=== PATIENT | male | born 1945 | race Caucasian/White ===

== ENCOUNTER → 2022-01-24 09:34 | Outpatient (CLI) | payer MEDICARE, OTHER, SELFPAY ==
[2022-01-24 21:43] LABS: Add Manual Diff / Slide Review NO; Basophils Absolute Auto 0 /uL (0-100); Basophils Percent Auto 0.9 % (0-2); Eosinophils Absolute Auto 0 /uL (0-450); Eosinophils Percent Auto 0.7 % (2-4); Hematocrit 44.5 % (41-53); Hemoglobin 15.1 g/dL (13.5-17.5); Lymphocytes Absolute Auto 1100 /uL (1100-4500); Lymphocytes Percent Auto 26.1 % (25-40); Mean Corpuscular HGB Conc 33.9 % (30-36); Mean Corpuscular Hemoglobin 30.7 PG (26-34); Mean Corpuscular Volume 90.6 fL (80-100); Monocytes Absolute Auto 300 /uL (0-900); Monocytes Percent Auto 6.2 % (3-14); Neutrophils Absolute Auto 2800 /uL (1500-7000); Neutrophils Percent Auto 66.1 % (50-75); Platelet Count 182 X10^3/uL (150-400); Red Blood Cell Count 4.91 X10^6/uL (4.5-5.9); Red Cell Distribution Width 12.8 % (11.6-14.8); White Blood Cell Count 4.2 X10^3/uL (4.5-11.0)
[2022-01-25 05:46] LABS: Alanine Aminotransferase 29 IU/L (<50); Albumin 4.1 g/dL (3.5-5.0); Albumin Globulin Ratio 1.6 (1.0-2.8); Alkaline Phosphatase 74 U/L (38-126); Aspartate Aminotransferase 32 IU/L (17-59); Bilirubin Total 0.9 mg/dL (0.2-1.3); Blood Urea Nitrogen 16 mg/dL (9-20); Calcium 8.9 mg/dL (8.4-10.2); Carbon Dioxide 27 mmol/L (22-32); Chloride 104 mmol/L (98-107); Cholesterol 205 mg/dL (140-199); Estimated Glomerular Filt Rate > 60 mL/min (>60); Globulin 2.5 g/dL (1.7-4.1); Glucose 103 mg/dL (80-110); HDL Cholesterol 61 mg/dL (40-60); HEMOLYSIS < 15 (0-50); LDL Cholesterol Calculated 136 mg/dL (<100); Potassium 4.5 mmol/L (3.4-5.1); Sodium 138 mmol/L (137-145); Total Protein 6.6 g/dL (6.3-8.2); Triglycerides 42 mg/dL (35-150)
[2022-01-25 06:16] LABS: Prostate Specific Antigen Scrn 0.688 ng/mL (0.1-4.0)
== END ==
PROVIDERS: PCP Physician Assistant Medical; Visit Provider Family Medicine
DX: Z13.29 Encounter for screening for other suspected endocrine disorder (principal); Z12.5 Encounter for screening for malignant neoplasm of prostate; Z13.220 Encounter for screening for lipoid disorders; Z13.0 Encounter for screening for diseases of the blood and blood-forming organs and certain disorders involving the immune mechanism; Z00.00 Encounter for general adult medical examination without abnormal findings
CPT/HCPCS: 80053; 80061; 84443; 85025; G0103

== ENCOUNTER 2022-04-17 18:51 | Observation (INO) | payer MEDICARE, OTHER, SELFPAY ==
[2022-04-17 19:03] VITALS: BP 139/84; PULSE 56; RESP 12; TEMP 35.7; O2SAT 99; BMI 26.6
--- NOTE | 2022-04-17 19:26 | DI.RAD.S_ITS ---
PROCEDURE: XR CHEST 1V INDICATIONS: chest pain TECHNIQUE: One view of the chest was acquired. COMPARISON: [facility], , CHEST 2 VIEW, 05/13/2008, 15:43. FINDINGS: Surgical changes and devices: None. Lungs and pleura: Lungs are clear. No pleural effusions or pneumothorax. Mediastinum: Mediastinal contours appear normal. Heart size is normal. Bones and chest wall: No suspicious bony lesions. Overlying soft tissues appear unremarkable. IMPRESSION: No acute cardiopulmonary pathology. Dictated by: David Mann M.D. on 04/17/2022 at 19:59 Approved by: David Mann M.D. on 04/17/2022 at 19:59
--- NOTE | 2022-04-17 19:27 | ED_ITS ---
HPI - Chest Pain General Chief Complaint: Chest Pain Stated Complaint: Chest pains Time Seen by Provider: 04/17/22 19:18 Mode of arrival: Family Vehicle History of Present Illness HPI narrative: Patient here with . Complains of intermittent left-sided chest discomfort and palpitations that last less than 5 minutes. Started 1 month ago with hiking and walking. Never had nausea syncope dyspnea numbness tingling or weakness. Pain is left pectoral area. Does not radiate. However today had 2 episodes that last again less than 5 or 10 minutes that occurred when he was at rest. No discomfort at this time. Risk factor includes father of heart issue in his 50s. Patient has never had any stress test or echocardiogram. Does not smoke. No recent illness. No cough cold congestion fever chills. Related Data Home Medications Medication Instructions Recorded Confirmed No Known Home Medications 04/17/22 04/17/22 Allergies Allergy/AdvReac Type Severity Reaction Status Date / Time No Known Drug Allergies Allergy Verified 04/17/22 19:07 Review of Systems Review of Systems Narrative: GENERAL: Denies chills, fatigue, malaise, fever, sweats. HEENT: Denies sinus pain, ear pain, sore throat RESPIRATORY: Denies dyspnea, cough CARDIOVASCULAR: Positive chest pain, palpitations GASTROINTESTINAL: Denies nausea, vomiting, abdominal pain : Denies dysuria, frequency, hematuria MUSCULOSKELETAL: denies muscle or bony pain SKIN: Denies rash, skin lesions NEUROLOGIC: Denies weakness, numbness ROS Unobtainable: All systems reviewed & are unremarkable except as noted in HPI and below Patient History Social History household members: spouse Smoking Status: Former smoker alcohol intake: current Smoking Status: Never smoker alcohol intake frequency: 0-2 drinks per day Substance Use Type: does not use Exam Narrative Exam Narrative: GENERAL: in no distress, not toxic not dyspneic HEAD: Normocephalic. EYES: Pupils equal round No scleral icterus. ENT: Mucous membranes moist. NECK: Trachea midline. CARDIOVASCULAR: Regular rate and rhythm without murmurs RESPIRATORY: Clear to auscultation. Breath sounds equal bilaterally. No wheezes, rales, or rhonchi. GASTROINTESTINAL: Abdomen soft, non-tender EXTREMITIES: No gross deformities. BACK: No flank tenderness. NEURO: AOx4. SKIN: Warm and dry PSYCH: Not anxious, is cooperative Initial Vital Signs Initial Vital Signs: Vital Signs Temperature 96.2 F L 04/17/22 19:03 Pulse Rate 56 L 04/17/22 19:03 Respiratory Rate 12 04/17/22 19:03 Blood Pressure 139/84 04/17/22 19:03 Pulse Oximetry 99 04/17/22 19:03 Oxygen Delivery Method 04/17/22 19:03 Course Course Course Narrative: No new issues during course of stay Decision to Admit Date: 04/17/22 Decision to Admit time: 19:28 Orders Ordered: ED Orders 04/17/22 19:19 Complete Blood Count AUTO DIFF Stat Comprehensive Metabolic Panel Stat Troponin & CK Cardiac Panel Stat 04/17/22 19:26 XR chest 1V Stat 04/17/22 21:12 COVID19 -Nasal RAPID/Pre-Proc Stat Acetaminophen (Acetaminophen 325 Mg Tablet) 650 mg PO Q6HR PRN PRN Reason: Fever/Mild Pain (1-3) Ondansetron HCl (Ondansetron 4 Mg/2 Ml Inj) 4 mg IV Q4HR PRN PRN Reason: Nausea And Vomiting Discontinued Medications Aspirin (Aspirin 81 Mg Chew Tab) 324 mg PO NOW ONE Stop: 04/17/22 19:25 Last Admin: 04/17/22 19:39 Dose: Not Given Documented By: NANCI Reevaluation(s) Reevaluation #1: Patient and family do agree for admission for stress test and echocardiogram. Consultations Consultation #1: Spoke with primary care dr kennedy, will admit pt Time: 20:35 Vital Signs Vital signs: Vital Signs - 8 hr 04/17/22 19:03 Temperature 96.2 F L Pulse Rate 56 L Respiratory Rate 12 Blood Pressure 139/84 Pulse Oximetry 99 Oxygen Delivery Method Room Air MDM - Chest Pain Differential Diagnosis Differential diagnosis: Likely stable angina, unstable angina pectoris, atypical chest pain, st elevation myocardial infarction and chest pain Lab Data Result diagrams: 04/17/22 19:19 04/17/22 19:19 Labs: Lab Results 04/17/22 04/17/22 Range/Units 19:19 19:19 WBC 6.3 (4.5-11.0) X10^3/uL RBC 4.99 (4.5-5.9) X10^6/uL Hgb 15.3 (13.5-17.5) g/dL Hct 44.8 (41-53) % MCV 89.7 (80-100) fL MCH 30.6 (26-34) PG MCHC 34.2 (30-36) % RDW 13.2 (11.6-14.8) % Plt Count 195 (150-400) X10^3/uL Neut % (Auto) 62.4 (50-75) % Lymph % (Auto) 27.2 (25-40) % [place] % (Auto) 7.7 (3-14) % Eos % (Auto) 1.7 L (2-4) % Baso % (Auto) 1.0 (0-2) % Neut # (Auto) 3900 (8570-2606) /uL Lymph # (Auto) 1700 (5268-4804) /uL [place] # (Auto) 500 (0-900) /uL Eos # (Auto) 100 (0-450) /uL Baso # (Auto) 100 (0-100) /uL Sodium 140 (137-145) mmol/L Potassium 4.1 (3.4-5.1) mmol/L Chloride 105 (98-107) mmol/L Carbon Dioxide 28 (22-32) mmol/L BUN 21 H (9-20) mg/dL Creatinine 0.89 (0.66-1.25) mg/dL Estimated GFR > 60 (>60) mL/min BUN/Creatinine Ratio 23.6 H (6-22) Glucose 91 (80-110) mg/dL Calcium 8.9 (8.4-10.2) mg/dL Total Bilirubin 0.4 (0.2-1.3) mg/dL AST 33 (17-59) IU/L ALT 31 (<50) IU/L Alkaline Phosphatase 89 (38-126) U/L Total Creatine Kinase 113 (55-170) U/L CK-MB (CK-2) 2.07 (<2.37) ng/mL CK-MB (CK-2) Rel Index 1.8 (1.5-5.0) % Troponin I < 0.012 (0.01-0.034) ng/mL Total Protein 7.3 (6.3-8.2) g/dL Albumin 4.2 (3.5-5.0) g/dL Globulin 3.1 (1.7-4.1) g/dL Albumin/Globulin Ratio 1.4 (1.0-2.8) Imaging Data Chest x-ray: Radiologist's Impression: [address] [address] XRay Report Signed Patient: Chilango Castle MR#: [id number] : 1945 Acct:[id number] Age/Sex: 77 / M Date of Service: 04/17/22 Loc: ED Accession Number: [id number] ?? Procedure: XR chest 1V Ordering Provider: Marino Salgado MD PROCEDURE:? XR CHEST 1V ? INDICATIONS:? chest pain ? TECHNIQUE:? One view of the chest was acquired.? ? COMPARISON:? [facility], , CHEST 2 VIEW, 05/13/2008, 15:43. ? FINDINGS:? ? Surgical changes and devices:? None.? ? Lungs and pleura:? Lungs are clear.? No pleural effusions or pneumothorax.? ? Mediastinum:? Mediastinal contours appear normal.? Heart size is normal.? ? Bones and chest wall:? No suspicious bony lesions.? Overlying soft tissues appear unremarkable.? ? IMPRESSION:? No acute cardiopulmonary pathology. ? ? Dictated by: David Mann M.D. on 04/17/2022 at 19:59 ? ? Approved by: David Mann M.D. on 04/17/2022 at 19:59 ? ECG Data Interpretation: Sinus bradycardia, rate 53, no ST elevation or depression MDM Narrative Medical decision making narrative: Appropriate for admission. Currently chest pain-free. Has not had chest test/stress test echocardiogram the past. Has history of family significant heart history. Patient and agree for admit. Reviewed with primary care f or admit. Discharge Plan Departure Patient Disposition: Admitted as Observation Clinical Impression: Chest pain Admit Date/Time: 04/17/22 20:36 Admit Provider: Dustin Kennedy
[2022-04-17 19:42] LABS: Add Manual Diff / Slide Review NO; Basophils Absolute Auto 100 /uL (0-100); Eosinophils Absolute Auto 100 /uL (0-450); Eosinophils Percent Auto 1.7 % (2-4); Hematocrit 44.8 % (41-53); Hemoglobin 15.3 g/dL (13.5-17.5); Lymphocytes Absolute Auto 1700 /uL (1100-4500); Lymphocytes Percent Auto 27.2 % (25-40); Mean Corpuscular HGB Conc 34.2 % (30-36); Mean Corpuscular Hemoglobin 30.6 PG (26-34); Mean Corpuscular Volume 89.7 fL (80-100); Monocytes Absolute Auto 500 /uL (0-900); Monocytes Percent Auto 7.7 % (3-14); Neutrophils Absolute Auto 3900 /uL (1500-7000); Neutrophils Percent Auto 62.4 % (50-75); Platelet Count 195 X10^3/uL (150-400); Red Blood Cell Count 4.99 X10^6/uL (4.5-5.9); Red Cell Distribution Width 13.2 % (11.6-14.8); White Blood Cell Count 6.3 X10^3/uL (4.5-11.0)
[2022-04-17 19:52] LABS: Alanine Aminotransferase 31 IU/L (<50); Albumin 4.2 g/dL (3.5-5.0); Albumin Globulin Ratio 1.4 (1.0-2.8); Alkaline Phosphatase 89 U/L (38-126); Aspartate Aminotransferase 33 IU/L (17-59); BUN Creatinine Ratio 23.6 (6-22); Bilirubin Total 0.4 mg/dL (0.2-1.3); Blood Urea Nitrogen 21 mg/dL (9-20); Calcium 8.9 mg/dL (8.4-10.2); Carbon Dioxide 28 mmol/L (22-32); Chloride 105 mmol/L (98-107); Creatine Kinase 113 U/L (55-170); Estimated Glomerular Filt Rate > 60 mL/min (>60); Globulin 3.1 g/dL (1.7-4.1); Glucose 91 mg/dL (80-110); HEMOLYSIS < 15 (0-50); Potassium 4.1 mmol/L (3.4-5.1); Sodium 140 mmol/L (137-145); Total Protein 7.3 g/dL (6.3-8.2)
[2022-04-17 20:03] LABS: Troponin I < 0.012 ng/mL (0.01-0.034)
[2022-04-17 20:07] LABS: CKMB % Relative Index 1.8 % (1.5-5.0); Creatine Kinase MB 2.07 ng/mL (<2.37)
[2022-04-17 21:13] VITALS: BP 141/79; PULSE 56; RESP 12; O2SAT 98
[2022-04-17 21:29] LABS: COVID19 -Nasal RAPID Negative (Negative)
[2022-04-17 21:35] VITALS: BP 148/79; PULSE 55; RESP 18; TEMP 35.8; O2SAT 98
[2022-04-17 22:12] VITALS: BMI 26.6
[2022-04-18 01:01] VITALS: BP 135/68; PULSE 53; RESP 18; TEMP 35.9; O2SAT 98
[2022-04-18 05:28] VITALS: BP 101/49; PULSE 52; RESP 17; TEMP 36.6; O2SAT 97
[2022-04-18 08:41] VITALS: BP 130/76; PULSE 51; RESP 18; TEMP 36.2; O2SAT 95
--- NOTE | 2022-04-18 08:43 | DI.ECHO.S_ITS ---
[facility] +---------+ : : [address] : : : : [id number] : : : : Phone: [phone]+ Echocardiogram Report + + :Name: NEIL LOUISE Study Date: 04/18/2022 Height: 69 in : :[facility] ReadingLocation: Weight: 180 lb : : Gender: Male BSA: 2.0 m2 : :: 1945 Age: 77 yrs BP: 148/79 mmHg: :Reason For Study: CHEST PAIN : :Ordering Physician: JAMES, : :JACKIE Chang Performed By: Amina Rodriguez : :Referring: JACKIE RAMIREZ : + + Interpretation Summary Sinus bradycardia with heart rate of 50-53 bpm. Normal LV size and wall thickness. Normal wall motion and left ventricular systolic function. Ejection fraction is estimated at 55-60%. Stage I diastolic dysfunction. No significant valvular abnormalities. Normal chamber sizes. Mildly dilated ascending aorta measuring 4 cm diameter. No prior study available for comparison. Procedure: A two-dimensional transthoracic echocardiogram with color flow and Doppler was performed. The study quality was technically adequate. There is no prior echocardiogram noted for this patient. The patient was in sinus bradycardia with heart rates between 50-53 bpm during the exam. Left Ventricle: The left ventricle is normal in size and wall thickness. The ejection fraction is estimated to be 55-60%. Right Ventricle: The right ventricle is normal in size and function. Atria: The left atrial size is normal. Right atrial size is normal. There is no Doppler evidence for an interatrial shunt. Mitral Valve: The mitral valve is normal in structure and function. There is mild mitral annular calcification. There is mild mitral regurgitation. Aortic Valve: The aortic valve is trileaflet. The aortic valve is mildly calcified. There is no aortic valve stenosis. No aortic regurgitation is present. Tricuspid Valve: The tricuspid valve is normal in structure and function. There is mild tricuspid regurgitation. The right ventricular systolic pressure is estimated to be at least 23 mmHg based on an estimated right atrial pressure of 3 mm Hg. Pulmonic Valve: The pulmonic valve leaflets are thin and pliable; valve motion is normal. There is mild pulmonic regurgitation. Great Vessels: The aortic root is normal size. The ascending aorta is mildly enlarged. The IVC was not well visualized secondary to technical limitations making central venous pressures difficult to estimate. Pericardium/ Pleura There is no pericardial effusion. There is no pleural effusion. MMode/2D Measurements & Calculations LVIDd: 4.1 cm LVOT diam: 2.6 cm LVIDs: 2.8 cm Ao root diam: 3.9 cm FS: 31.4 % asc Aorta Diam: 4.0 cm EPSS: 0.89 cm Ao Arch Diam (Prox Trans): 3.5 cm IVSd: 1.1 cm LVPWd: 0.91 cm LV perez. diameter/BSA (cm/m^2): 2.1 LV sys. diameter/BSA (cm/m^2): 1.4 LA A2 area: 20.2 cm2 RA long axis: 5.0 cm LA A4 area: 17.3 cm2 RA area: 15.6 cm2 LA length (vol): 5.1 cm RA vol: 41.4 ml LA vol: 58.9 ml RA : 21.0 ml/m2 LA vol index: 29.8 ml/m2 RVD1 (basal): 3.9 cm RVD2 (mid): 2.9 cm TAPSE: 2.2 cm Doppler Measurements & Calculations Ao V2 max: 149.6 cm/sec LVOT Max Jimmie: 75.4 cm/sec Ao V2 mean: 104.5 cm/sec LV V1 max P.3 mmHg Ao max P.0 mmHg LV V1 VTI: 18.1 cm Ao mean P.8 mmHg TERRA(I,D): 2.9 cm2 Ao V2 VTI: 33.8 cm TERRA(V,D): 2.7 cm2 sev ratio: 0.53 TERRA indexed to BSA (cm^2/m^2): 1.5 MV E max jimmie: 65.5 cm/sec TR max jimmie: 225.5 cm/sec MV A max jimmie: 78.3 cm/sec TR max P.3 mmHg MV E/A: 0.84 PA V2 max: 71.5 cm/sec Med Peak E' Jimmie: 6.7 cm/sec PA V2 mean: 50.4 cm/sec E/E' med: 9.7 PA mean P.1 mmHg Lat Peak E' Jimmie: 8.5 cm/sec PA pr(Accel): 32.8 mmHg E/E' lat: 7.7 E/e' average: 8.7 MV dec time: 0.32 sec SV(LVOT): 97.4 ml Electronically signed by: Zulema Ramesh M.D. on Reading Physician:04/18/2022 02:56 PM
--- NOTE | 2022-04-18 08:51 | PM.HP.1 ---
History of Present Illness History of Present Illness Date Patient Seen: 04/18/22 Time Patient Seen: 08:51 Date of Onset of Symptoms: 04/17/22 Chief complaint: Chest pains Narrative: Presented to ED for two episodes of chest tingling at left lateral sternal border yesterday Had these previously while he was on hikes over last year but these occurred at rest Not pain as such lasted about 5 minutes each time then dissipated Initial ED workup unremarkable He is feeling ok over night, got some sleep, no further episodes of chest tightness/buzzing since he's been here will get stress and echo today takes no meds at baseline, vigorous active riky denies any history of trauma no big new life events pretty normal times for him lives in the [facility]. Patient History Family & Social History Family history unavailable: No (youngest brother has stent. dad had RI.) Social History: household members spouse Prior Living Arrangements House Safety & Behavioral: Feels Safe in Current Yes Environment Been Physically Hurt or No Threatened By a Person Tobacco & Substance use: Smoking Status Former smoker alcohol intake current alcohol intake frequency a few times a week Substance Use Type does not use Meds Home Medications and Allergies Home Medications Medication Instructions Recorded Confirmed Type No Known Home Medications 04/17/22 04/17/22 History Allergies Allergy/AdvReac Type Severity Reaction Status Date / Time No Known Drug Allergies Allergy Verified 04/17/22 19:07 Review of Systems Review of Systems Narrative: all systems reviewed and negative except as otherwise documented in HPI Exam Vital Signs (past 8 hours): - 04/18/22 01:01 04/18/22 05:28 04/18/22 08:41 Temperature 96.6 F L 97.9 F 97.1 F L Pulse Rate 53 L 52 L 51 L Respiratory Rate 18 17 18 Blood Pressure 135/68 101/49 L 130/76 Pulse Oximetry 98 97 95 Oxygen Flow Rate 0 0 0 Oxygen Delivery Method Room Air Oxygen Flow Rate 0 Narrative Exam Narrative: pleasant riky laying in bed Const General: cooperative, healthy appearing and comfortable [facility] Head: normocephalic and other (cauliflower ears) Eyes General: appearance normal, both eyes and all related structures Resp Auscultation: clear to auscultation bilaterally Cardio Rate: regular rate Rhythm: regular rhythm Heart Sounds: S1 normal and S2 normal GI Palpation: soft Auscultation: normal bowel sounds Skin General: no rashes or lesions noted Neuro General: patient alert, patient awake, patient oriented x3, moves all extremities, CN's II-XI intact bilaterally and deep tendon reflexes 2+ bilaterally Extrem General: full ROM and no pedal edema Psych Appearance: grossly normal Objective Labs Result Diagrams: 04/17/22 19:19 04/17/22 19:19 Labs: Laboratory Results - last 24 hr 04/17/22 04/17/22 04/17/22 19:19 19:19 21:12 WBC 6.3 RBC 4.99 Hgb 15.3 Hct 44.8 MCV 89.7 MCH 30.6 MCHC 34.2 RDW 13.2 Plt Count 195 Neut % (Auto) 62.4 Lymph % (Auto) 27.2 [place] % (Auto) 7.7 Eos % (Auto) 1.7 L Baso % (Auto) 1.0 Neut # (Auto) 3900 Lymph # (Auto) 1700 [place] # (Auto) 500 Eos # (Auto) 100 Baso # (Auto) 100 Sodium 140 Potassium 4.1 Chloride 105 Carbon Dioxide 28 BUN 21 H Creatinine 0.89 Estimated GFR > 60 BUN/Creatinine Ratio 23.6 H Glucose 91 Calcium 8.9 Total Bilirubin 0.4 AST 33 ALT 31 Alkaline Phosphatase 89 Total Creatine Kinase 113 CK-MB (CK-2) 2.07 CK-MB (CK-2) Rel Index 1.8 Troponin I < 0.012 Total Protein 7.3 Albumin 4.2 Globulin 3.1 Albumin/Globulin Ratio 1.4 SARS-CoV-2 (PCR) Negative Assessment & Plan Assessment & Plan narrative: #Chest pain rule out ACS initial labs/EKG/CXR unremarkable but with strong family history checking stress and echo today continue manager cardiac dispo: admit obsv for cardiac workup PCP: Edwin diet: NPO until tests then heart-healthy MDM: Code: environmental engineering technician Spent With Patient Critical Care time: I spent a total of [] minutes of critical care time on this patient's care today; this time is exclusive of procedural time.
--- NOTE | 2022-04-18 09:19 | PC.NURSE ---
Dayshift Pt left floor at 0915 to go to stress test, left via wheelchair accompanied by staff.
--- NOTE | 2022-04-18 09:39 | PC.NURSE ---
DayShift Pt returned from stress test. Oriented to call light, and given water.
[2022-04-18] MEDS: ENOXAPARIN 40 MG/0.4 ML SYRINGE SUBCUT (09:48)
--- NOTE | 2022-04-18 11:43 | PC.NURSE ---
DaySHift Pt left to go to stress test left floor via wheelchair at 1115.
--- NOTE | 2022-04-18 13:08 | PC.NURSE ---
dayshift Pt returned from stress test at 1255. Pt will have heart healthy diet plate of food ordered. Tele put back on. Pt orientated to call light.
[2022-04-18 13:11] VITALS: BP 135/85; PULSE 61; RESP 18; TEMP 36.4; O2SAT 94
--- NOTE | 2022-04-18 17:30 | PM.DS.1 ---
History of Present Illness History of Present Illness Date Patient Seen: 04/18/22 Time Patient Seen: 17:30 Date of Onset of Symptoms: 04/17/22 Chief complaint: Chest pains Narrative: Presented to ED for two episodes of chest tingling at left lateral sternal border yesterday Had these previously while he was on hikes over last year but these occurred at rest Not pain as such lasted about 5 minutes each time then dissipated Initial ED workup unremarkable He is feeling ok over night, got some sleep, no further episodes of chest tightness/buzzing since he's been here will get stress and echo today takes no meds at baseline, vigorous active riky denies any history of trauma no big new life events pretty normal times for him lives in the [facility]. Discharge Providers Provider Date of admission: 04/17/22 20:36 Discharge Date: 04/18/22 Primary care physician: Dustin Pineda MD Discharge provider: Dustin Pineda MD Summary Hospital Course Discharge Diagnosis: #chest pain rule out ACS Hospital Course: Mr. Castle did well during his admission with no further episodes of chest pain/tingling such as he was having prior to admission echocardiogram looks reassuring, treadmill stress test did well with low risk read per phone report from cardiology able to ambulate and eat a regular diet without problems, feeling fine Status at Discharge Cognitive/behavioral status at discharge: at baseline, oriented Functional status at discharge: independent ambulation Overall status at discharge: patient is back to baseline Exam Vital Signs (past 8 hours): - 04/18/22 13:11 Temperature 97.6 F Pulse Rate 61 Respiratory Rate 18 Blood Pressure 135/85 Pulse Oximetry 94 Oxygen Flow Rate 0 Oxygen Delivery Method Room Air Oxygen Flow Rate 0 Const General: cooperative, healthy appearing, comfortable and well developed [facility] Head: normal to inspection Eyes General: appearance normal, both eyes and all related structures Resp Auscultation: clear to auscultation bilaterally Cardio Rate: regular rate and bradycardic Rhythm: regular rhythm Heart Sounds: S1 normal and S2 normal GI Other: soft nontender nondistended normal bowel sounds Skin General: no rashes or lesions noted Neuro General: patient alert, patient awake, patient oriented x3, gait normal, moves all extremities and CN's II-XI intact bilaterally Extrem General: normal to inspection, full ROM and no pedal edema Psych Appearance: grossly normal Objective Labs Result Diagrams: 04/17/22 19:19 04/17/22 19:19 Labs: Laboratory Results - last 24 hr 04/17/22 04/17/22 04/17/22 19:19 19:19 21:12 WBC 6.3 RBC 4.99 Hgb 15.3 Hct 44.8 MCV 89.7 MCH 30.6 MCHC 34.2 RDW 13.2 Plt Count 195 Neut % (Auto) 62.4 Lymph % (Auto) 27.2 [place] % (Auto) 7.7 Eos % (Auto) 1.7 L Baso % (Auto) 1.0 Neut # (Auto) 3900 Lymph # (Auto) 1700 [place] # (Auto) 500 Eos # (Auto) 100 Baso # (Auto) 100 Sodium 140 Potassium 4.1 Chloride 105 Carbon Dioxide 28 BUN 21 H Creatinine 0.89 Estimated GFR > 60 BUN/Creatinine Ratio 23.6 H Glucose 91 Calcium 8.9 Total Bilirubin 0.4 AST 33 ALT 31 Alkaline Phosphatase 89 Total Creatine Kinase 113 CK-MB (CK-2) 2.07 CK-MB (CK-2) Rel Index 1.8 Troponin I < 0.012 Total Protein 7.3 Albumin 4.2 Globulin 3.1 Albumin/Globulin Ratio 1.4 SARS-CoV-2 (PCR) [facility] Social History household members: spouse Smoking Status: Former smoker alcohol intake: current Discharge Assessment & Plan Assessment and Plan Assessment: #Chest pain rule out ACS initial labs/EKG/CXR unremarkable but with strong family history stress and echo reassuring/low risk today will dc home to f/u as outpt dispo: home to f/u with PCP next week PCP: Edwin diet: heart healthy MDM: Code: full Discharge Plan Discharge Plan Patient Disposition: Home Discharge orders & Medications Prescriptions: No Action No Known Home Medications Follow up/Referrals: Letty Wooten, [facility] [Primary Care Provider] - Visit Report/Discharge Packet Instructions: Cardiac Stress Test, DI for Atypical Chest Pain, DI for Chest Pain Discharge Data Primary Care Provider: Letty Wooten Attending Provider: Dustin Pineda
--- NOTE | 2022-04-18 17:42 | PC.NURSE ---
day shift Pt left floor via wheel chair accompanied by spouse. Pt received paperwork all questions answered. Pt denies pain or nausea. VS WNL. Pt has all personal belongings. Pt taken to private vehicle, spouse will be driving.
--- NOTE | 2022-04-19 10:32 | DI.NM.S_ITS ---
DATE OF SERVICE: 04/18/2022 PROCEDURE: Exercise perfusion study. INDICATION: Chest pain. RADIOPHARMACEUTICAL: 27.4 millicurie technetium-99m Myoview IV was injected at stress and 9.3 millicurie technetium-99m Myoview IV was injected at rest. CARDIAC STRESS: The patient underwent exercise perfusion study under the supervision of an attending staff. He walked on Josh protocol for 8 minutes, 05 seconds, achieved 103 percent of target heart rate. Baseline blood pressure 132/82 mmHg. Peak blood pressure 190/100 mmHg. Maximum heart rate 149 and resting heart rate 66 beats per minute. Baseline rhythm was sinus. During stress, no convincing ischemic changes seen. Rare PVCs. Achieved 10.1 METs of workload. BERNICE -31 percent. No chest discomfort. RAW DATA: There is increased subdiaphragmatic activity. GATED STUDY: Stress LV ejection fraction 71 percent. TID ratio 0.80, which is within normal limits. Lung/heart ratio 0.33, which is within normal limits. Stress end-diastolic volume 99 mL. MYOCARDIAL PERFUSION SCAN: Stress supine and resting supine, as well as stress prone images were compared to each other. Resting supine images revealed small size, mildly decreased perfusion of inferior wall. Resting supine images revealed a small to moderate size, mildly decreased perfusion of inferior wall and severely decreased perfusion of distal inferior wall and inferoapex. During stress prone images, perfusion defect got completely resolved. Normal myocardial perfusion during stress prone images. This suggests diaphragmatic tissue attenuation artifact. CONCLUSION: I will call this study a normal myocardial perfusion study with evidence of diaphragmatic tissue attenuation artifact, which got completely resolved during stress prone images. Good exercise tolerance. Functional aerobic impairment -31 percent. Normal hemodynamic response. Preserved left ventricular function. No significant arrhythmias. No anginal symptoms. Overall low-risk exercise stress test. Chilango Castle - JORYD/zaki/darryl doc#: [id number]/job#: [id number] dd: 04/18/2022 16:58:00 dt: 04/18/2022 20:40:00 DICTATING MD/COPIES TO: Brianna aLwler MD COPIES MNE: SIMON;
== END 2022-04-18 18:10 | disposition home or self-care (01) ==
LOC: ED 19:29 → AC 20:36
PROVIDERS: Admitting Provider Family Medicine; Emergency Provider Emergency Medicine; PCP Physician Assistant Medical; Referring Provider Emergency Medicine; Visit Provider Family Medicine
DX: R07.9 Chest pain, unspecified (principal); Z20.822 Contact with and (suspected) exposure to COVID-19
CPT/HCPCS: 36415; 71045; 78452; 80053; 82550; 82553; 84484; 85025; 87635; 93005; 93010; 93017; 93306; 96372; 99284; C9803; G0378; A9502; J1650